=== PATIENT | female | born 1990 | race Caucasian/White ===

== ENCOUNTER 2016-12-25 16:05 | Emergency (ER) | payer OTHER | END 2016-12-25 18:25 | disposition home or self-care (01) | LOC: ER 16:05 | DX: J06.9 Acute upper respiratory infection, unspecified (principal); R11.0 Nausea; F32.9 Major depressive disorder, single episode, unspecified; Z98.51 Tubal ligation status; F17.210 Nicotine dependence, cigarettes, uncomplicated | CPT/HCPCS: 70220; 87400; 99283-25 ==